=== PATIENT | female | born 1985 | race Two or more races ===

== ENCOUNTER → 2024-08-02 | Outpatient (CLI) | payer MEDICAID, SELFPAY | END | disposition home or self-care (01) | LOC: CDIM 14:16 | PROVIDERS: PCP Registered Nurse Community Health; Referring Provider Obstetrics & Gynecology; Visit Provider Obstetrics & Gynecology | DX: Z53.8 Procedure and treatment not carried out for other reasons (principal); O20.0 Threatened abortion ==